=== PATIENT | male | born 1995 | race Caucasian/White ===

== ENCOUNTER 2022-08-07 08:41 | Emergency (ER) | payer BC, OTHER ==
[2022-08-07] MEDS ORDERED: Sodium Chloride 0.9% 10 ML Syringe FLUSH PRN (09:14)
[2022-08-07] MEDS ORDERED: Sodium Chloride 0.9% 1,000 ML IV SCH (09:30)
== END 2022-08-07 11:15 | disposition home or self-care (01) ==
LOC: JD.ED 08:41
DX: R00.1 Bradycardia, unspecified (principal); F17.210 Nicotine dependence, cigarettes, uncomplicated
CPT/HCPCS: 36415; 80053; 84484; 85025; 93005; 93225; 93226; 96360; 99284; J3490; J7030